=== PATIENT | male | born 1965 | race Caucasian/White ===

== ENCOUNTER 2020-01-09 19:11 | Emergency (ER) | payer BC ==
--- NOTE | 2020-01-09 20:54 | ED Physician Documentation ---
History of Present Illness - Stated complaint Stated Complaint: WANTS BLOOD TEST - Chief complaint Chief Complaint: General - History obtained from History obtained from: Patient - History of Present Illness Timing: Today Pain level max: 0 Pain level now: 0 - Additonal information Additional information: 54-year-old male presents to the emergency department after being arrested for DUI tonight. He is requesting a blood draw here for alcohol. No medical complaints Review of Systems Constitutional: denies: Fever Cardiac: denies: Chest pain / pressure GI: denies: Vomiting PD PAST MEDICAL HISTORY - Past Medical History Past Medical History: No - Past Surgical History Past Surgical History: Yes Ortho: Other - Present Medications Home Medications: Ambulatory Orders Medication Instructions Recorded Confirmed No Known Home Medications 01/09/20 01/09/20 - Allergies Allergies/Adverse Reactions: Allergies Allergy/AdvReac Type Severity Reaction Status Date / Time No Known Drug Allergies Allergy Verified 01/09/20 19:17 - Social History Does the pt smoke?: No Smoking Status: Never smoker Does the pt drink ETOH?: Yes Does the pt have substance abuse?: No - Immunizations Immunizations are current?: Yes - POLST Patient has POLST: No PD ED PE NORMAL - Vitals Vital signs reviewed: Yes - General General: Alert and oriented X 3, No acute distress - HEENT HEENT: Moist mucous membranes - Respiratory Respiratory: No respiratory distress - Derm Derm: Warm and dry - Neuro Neuro: Alert and oriented X 3 - Psych Psych: Normal mood, Normal affect Results - Vitals Vitals: Vital Signs - 24 hr 01/09/20 01/09/20 19:17 21:04 Temperature 36.5 C 37.2 C Heart Rate 120 H 114 H Respiratory 16 20 Rate Blood Pressure 176/89 H 149/106 H O2 Saturation 99 96 Oxygen O2 Source Room air PD MEDICAL DECISION MAKING - ED course Complexity details: d/w patient ED course: 54-year-old male here requesting a blood draw for an alcohol level to contest a DUI. I contacted the state police who state that they do not need a legal blood draw tonight. I spoke with our deputy chief executive and our hospital rn embedded. Confirm that we do not perform blood alcohol levels without medical necessity. As this is not a medical emergency, patient received a medical screening exam and can follow-up with his doctor. This document was made in part using voice recognition software. While efforts are made to proofread this document, sound alike and grammatical errors may occur. Departure - Departure Disposition: 01 Home, Self Care Clinical Impression: Encounter for medical screening examination Condition: Good Instructions: ED Screening Exam Medical Nonurgent Follow-Up: your,doctor as needed [Other] Comments: The police have stated they will not perform a legal blood draw with you tonight. You can contact them with questions. Discharge Date/Time: 01/09/20 21:12
[2020-01-09 21:07] VITALS: BP 149/106
== END 2020-01-09 21:12 | disposition home or self-care (01) ==
LOC: ED 19:11
DX: Z02.83 Encounter for blood-alcohol and blood-drug test (principal)
CPT/HCPCS: 99281